=== PATIENT | male | born 1935 | race Caucasian/White ===

== ENCOUNTER → 2019-10-05 14:19 | Outpatient (CLI) | payer MEDICARE ==
[2019-10-05 15:18] LABS: BASOPHILS 0.5 % (0-2); EOSINOPHILS 3.2 % (0-7); HEMATOCRIT 24.4 % (42.0-54.0); IMMATURE GRANULOCYTES 0.2 % (0-5); MCH 25.4 pg (26.0-34.0); MCHC 29.5 g/dL (31.0-37.0); MCV 85.9 fL (80.0-100.0); MEAN PLATELET VOLUME 9.9 fL (7.4-10.4); MONOCYTES 11.7 % (2-11); NEUTROPHILS 62.4 % (40-80); PLATELET COUNT 321 10x3/uL (130-400); RBC 2.84 10x6/uL (4.20-6.10); RDW 15.3 % (11.5-14.5); WBC 5.9 10x3/uL (4.8-10.8)
[2019-10-05 15:25] LABS: INR 2.72 (0.85-1.17); PROTIME 28.4 SECONDS (11.6-15.0)
[2019-10-05 15:41] LABS: HEMOGLOBIN 7.2 g/dL (13.5-17.5)
== END | disposition home or self-care (01) ==
LOC: D.LABREF 14:19
PROVIDERS: ATTEND Internal Medicine Hematology & Oncology
DX: D50.9 Iron deficiency anemia, unspecified (principal)